=== PATIENT | female | born 1975 ===

== ENCOUNTER 2022-06-30 11:40 | Inpatient (IN) | payer OTHER ==
[~2022-06-30] VITALS: Ht 170.2 cm; Wt 65.8 kg
[2022-07-01] MEDS ORDERED: ZYRTEC10 M3 PO (09:11)
[2022-07-01] MEDS ORDERED: FLONASE16 GM (09:12)
[2022-07-09] MEDS ORDERED: GABAPENTIN300 MG PO (07:04)
[2022-07-09] MEDS ORDERED: POLY119PG PO (07:04)
[2022-07-09] MEDS ORDERED: IBUPROFEN800 MG PO (07:04)
[2022-07-09] MEDS ORDERED: SIMETHICONE125 M1 PO (07:05)
== END 2022-07-09 08:27 | disposition home or self-care (01) | DRG 743 ==
LOC: OB/GYN 07-06 05:12 → O/R 07-06 05:12 → OB/GYN 07-06 08:15
PROVIDERS: ADMIT Obstetrics & Gynecology; ATTEND Obstetrics & Gynecology
PROC: 0UT50ZZ Resection of Right Fallopian Tube, Open Approach (ICD-10-PCS; 2022-07-06)
PROC: 0UT90ZZ Resection of Uterus, Open Approach (ICD-10-PCS; principal; 2022-07-06 08:15)
DX: D25.2 Subserosal leiomyoma of uterus (principal); Z20.822 Contact with and (suspected) exposure to COVID-19